=== PATIENT | female | born 1940 | race Caucasian/White ===

== ENCOUNTER 2018-11-03 05:40 | Day surgery (SDC) | payer MEDICARE, BC ==
[2018-11-03] MEDS ORDERED: TROP 1%/CYCLOPEN 1%/PHENYL 2% DROPS ONE (05:55)
[2018-11-03] MEDS ORDERED: PROPARACAINE 0.5% OPHTH SOL 15 ML BTTL ONE (05:55)
[2018-11-03] MEDS ORDERED: MOXIFLOXACIN HCL (OPHTH) 1 DROP DROPS ONE (05:55)
[2018-11-03] MEDS ORDERED: MIDAZOLAM INJ 2 MG/2 ML VIAL ONE (07:51)
[2018-11-03] MEDS ORDERED: DEXAMETHASONE 0.1% OPHTH SOL 1 DROP RIGHT_EYE ONE ×2 (08:00→08:10)
[2018-11-03] MEDS ORDERED: MOXIFLOXACIN HCL (OPHTH) 1 DROP DROPS RIGHT_EYE ONE ×2 (08:00→08:10)
[2018-11-03] MEDS ORDERED: LIDOCAINE 1% MPF 2 ML VIAL INJ ONE (08:00)
[2018-11-03] MEDS ORDERED: BRIMONIDINE 0.2% OPHTH DROPS RIGHT_EYE ONE ×2 (08:01→08:10)
[2018-11-03] MEDS ORDERED: TOBRAMYCIN SULF 0.3 % OPHT SOL 1 DROP RIGHT_EYE ONE ×2 (08:01→08:10)
== END 2018-11-03 08:50 | disposition home or self-care (01) ==
LOC: AMB 05:40
PROVIDERS: ATTEND Ophthalmology
DX: H25.11 Age-related nuclear cataract, right eye (principal); I10 Essential (primary) hypertension; E07.9 Disorder of thyroid, unspecified; J44.9 Chronic obstructive pulmonary disease, unspecified; F17.200 Nicotine dependence, unspecified, uncomplicated; Z79.899 Other long term (current) drug therapy
CPT/HCPCS: 00142; 66984; J2250

== ENCOUNTER 2018-11-17 05:29 | Day surgery (SDC) | payer MEDICARE, BC ==
[2018-11-17] MEDS ORDERED: TROP 1%/CYCLOPEN 1%/PHENYL 2% DROPS ONE (05:56)
[2018-11-17] MEDS ORDERED: MIDAZOLAM INJ 2 MG/2 ML VIAL ONE (07:08)
[2018-11-17] MEDS: PROPARACAINE 0.5% OPHTH SOL 15 ML BTTL ONE (07:42)
[2018-11-17] MEDS: LIDOCAINE 1% MPF 2 ML VIAL INJ ONE (07:45)
[2018-11-17] MEDS: MOXIFLOXACIN HCL (OPHTH) 1 DROP DROPS LEFT_EYE ONE ×2 (07:49→07:58)
[2018-11-17] MEDS: TOBRAMYCIN SULF 0.3 % OPHT SOL 1 DROP LEFT_EYE ONE ×2 (07:50→07:58)
[2018-11-17] MEDS: BRIMONIDINE 0.2% OPHTH DROPS LEFT_EYE ONE ×2 (07:50→07:58)
[2018-11-17] MEDS: DEXAMETHASONE 0.1% OPHTH SOL 1 DROP LEFT_EYE ONE ×2 (07:50→07:58)
== END 2018-11-17 08:39 | disposition home or self-care (01) ==
LOC: AMB 05:29
PROVIDERS: ATTEND Ophthalmology
DX: H25.12 Age-related nuclear cataract, left eye (principal); I10 Essential (primary) hypertension
CPT/HCPCS: 00142; 66984; J2250